=== PATIENT | male | born 1960 | race Caucasian/White ===

== ENCOUNTER 2020-09-18 09:30 | Day surgery (SDC) | payer OTHER ==
[~2020-09-18 09:30] MED LIST: PROPOFOL INJ 200 MG/20 ML VIAL IV ONE
--- NOTE | 2020-09-18 12:32 | Operative Report ---
Operative Report DATE OF SURGERY: 09/18/20 Operative Report: The risk, benefits and alternatives of the procedure including the risk of bleeding, perforation requiring surgery have been explained to the patient in detail and informed consent has been obtained. Patient is taken back to the operating room and placed in left, lateral decubital position. Timeout was called. Propofol medication is administered. Rectal examination is done which did not reveal any masses, tears or fissures. An Olympus videoscope was introduced into the patient's rectum. Scope was then carefully advanced all the way to the cecum. Cecum was identified by the usual anatomical landmarks of the ileocecal valve as well as the appendiceal office. Photodocumentation is obtained. Scope was then sequentially pulled back via the various segments of the colon including the ascending colon, hepatic flexure, transverse colon, splenic flexure, descending colon and finally in to the rectosigmoid portions of the colon. Retroflexion maneuvers performed. PREOPERATIVE DIAGNOSIS: Colorectal cancer screening POSTOPERATIVE DIAGNOSIS: Diverticulosis without any evidence of diverticulitis. Some mild adjacent inflammation on the left side of the colon status post biopsy. Internal hemorrhoids. No GI bleeding noted OPERATION: Colonoscopy biopsy SURGEON: LETICIA TINEO ANESTHESIA: LMAC TISSUE REMOVED OR ALTERED: As noted above. COMPLICATIONS: None. ESTIMATED BLOOD LOSS: None. INTRAOPERATIVE FINDINGS: As noted above. PROCEDURE: Patient tolerated procedure well. No immediate postprocedure complications are noted. Patient is discharged in good condition. Discharge date 09/18/2020. Discharge diet: Regular. Discharge activity: Regular. 2 to 3-week follow-up to discuss findings. Patient is instructed to call the office or proceed to the emergency room should there be any further problems or questions. Wait on the pathology. If -10-year surveillance colonoscopy.
[2020-09-18 12:57] VITALS: BP 110/74
--- OUTSIDE RECORDS SUMMARY | 2020-09-18 14:32 | XMS REPORT ---
:1960 Author [facility] [place] [facility] [place] [address] [place] [id number] Care Team Providers Name Role Phone Unavailable Unavailable Unavailable Allergies, Adverse Reactions, Alerts This patient has no known allergies or adverse reactions. Medications This patient has no known medications. Problems This patient has no known problems. Procedures This patient has no known procedures. Results Test Description Test Time Test Comments Text Results Atomic Results Result Comments SARS-CoV-2 RNA Resp Ql PEDRO PABLO+probe 2020-09-12 00:00:00 Test Item Value Reference Range Comments SARS-CoV-2 RNA Resp Ql PEDRO PABLO+probe [facility] Case ID: (test code = 14335-8) [id number] SARS-CoV-2, PEDRO PABLO\S\2020-09-11 20:52:00 Test Item Value Reference Range Comments SARS-CoV-2, PEDRO PABLO (test code = 00389-9) Not Detected Not Detect ed Social History This patient has no known social history. Vital Signs This patient has no known vital signs.
== END 2020-09-18 10:55 | disposition home or self-care (01) ==
LOC: OROUT 09:30
PROVIDERS: ATTEND Internal Medicine Gastroenterology
DX: Z12.11 Encounter for screening for malignant neoplasm of colon (principal); Z12.12 Encounter for screening for malignant neoplasm of rectum; K57.90 Diverticulosis of intestine, part unspecified, without perforation or abscess without bleeding; K52.9 Noninfective gastroenteritis and colitis, unspecified; K64.8 Other hemorrhoids; Z86.010 Personal history of colon polyps; I10 Essential (primary) hypertension; Z79.899 Other long term (current) drug therapy
CPT/HCPCS: 45380; 88305 ×2; 00812; J2704; 812